=== PATIENT | male | born 2000 | race African-American/Black ===

== ENCOUNTER 2024-02-07 07:50 | Emergency (ER) | payer MEDICAID, OTHER ==
[~2024-02-07] VITALS: Ht 172.7 cm; Wt 75.0 kg
[2024-02-07 07:52] VITALS: O2SAT 99
[2024-02-07] MEDS ORDERED: TOPUD MT (08:46)
[2024-02-07] MEDS ORDERED: IBUP-2437 MT (08:47)
[2024-02-07 09:07] VITALS: BP 116/78; PULSE 70; RESP 16; TEMP 37.00296; O2SAT 99
== END 2024-02-07 09:11 | disposition home or self-care (01) ==
LOC: ER 08:09
DX: J10.1 Influenza due to other identified influenza virus with other respiratory manifestations (principal); Z20.822 Contact with and (suspected) exposure to COVID-19
CPT/HCPCS: 87426; 87804; 99283